=== PATIENT | female | born 1940 | race Caucasian/White ===

== ENCOUNTER 2016-10-04 12:07 | Day surgery (SDC) | payer MEDICARE, OTHER ==
[~2016-10-04] VITALS: Ht 165.1 cm; Wt 86.4 kg
[~2016-10-04 12:07] MED LIST: CALC-952 PO; CHOL200025 PO; DOXY25TA44 PO; FISH1CAP15 PO; MULT1CAP33 PO; NPR500T PO; Sodium Chloride LOK Flush 10 mL Syringe IV PRN; fentaNYL-PF 50 mCg/mL 2 mL Inj IVPUSH PRN
[2016-10-04 13:09] VITALS: BP 132/77; PULSE 99; RESP 16; O2SAT 97
[2016-10-04] MEDS: 0.9% Sodium Chloride 1,000 ML IV SCH ×3 (14:02→14:38)
[2016-10-04 14:42] VITALS: BP 119/67; PULSE 69; RESP 16; O2SAT 94
[2016-10-04 14:52] VITALS: BP 114/61; PULSE 77; RESP 14; O2SAT 97
[2016-10-04 15:02] VITALS: BP 118/58; PULSE 73; RESP 16; O2SAT 97
--- NOTE | 2016-10-04 15:10 | ENDO ---
[address] [address] ENDOSCOPY PROCEDURE PATIENT: SAL HAY : 1940 MR#: [id number] ADMIT: 10/04/2016 JOB ID: [id number] DATE: 10/04/2016 PROCEDURE: Colonoscopy. INDICATION: Family history of colon cancer. The patient's ASA classification is 2. Mallampati score is 2. MEDICATIONS: please see nurse's notes for details regarding sedation INSTRUMENT USED: PCF H 190 DL. PREPARATION QUALITY: Fair. PROCEDURE DETAILS: After informed consent was obtained, the patient was brought into the GI suite, where she was placed on oxygen via nasal cannula and monitored with continuous pulse oximeter, telemetry and blood pressure monitoring. A time-out was performed. Then, she was placed in the left lateral decubitus position and medications were administered for sedation. Digital rectal examination was performed and was unremarkable. The colonoscope was then inserted into the rectum and advanced under direct visualization to the cecum, which was identified by the presence of the ileocecal valve and appendiceal orifice. Once the cecum was reached, the colonoscope was withdrawn back to the rectum as the mucosa and lumen were examined. In the rectum, retroflexion was performed. Following retroflexion, remaining air in the rectum was suctioned, and the procedure was completed. FINDINGS: 1. A diminutive polyp was seen in the sigmoid colon which was removed with cold biopsy forceps. 2. Scattered diverticula were seen throughout the sigmoid colon. IMPRESSION: 1. Sigmoid polyp. 2. Sigmoid diverticulosis. RECOMMENDATIONS: 1. Fiber rich diet. 2. Repeat colonoscopy in five years. COMPLICATIONS: None. ESTIMATED BLOOD LOSS: Less than 5 mL. MTDD
--- NOTE | 2016-10-09 13:30 | PATH ---
SURGICAL PATHOLOGY Attending Physician:Jacoby Arboleda CASE STATUS: Signed Out PATIENT NAME: SAL HAY PID: [id number] : 1940 DATE COLLECTED:10/04/2016 00:00 SPECIMEN: Colon, Biopsy CLINICAL HISTORY: 1). SIGMOID COLON POLYP FINAL DIAGNOSIS: 1.SIGMOID COLON POLYP: POLYPOID-SHAPED FRAGMENT OF COLON MUCOSA CONSISTENT WITH MUCOSAL POLYPOID REDUNDANCY. ICD10 CODE K63.5 GROSS DESCRIPTION: The specimen is received in one formalin filled container labeled with the patient's name, sublabeled "sigmoid polyp" and consists of a 0.3 x 0.3 x 0.2 CM portion of tissue which is entirely submitted in one cassette. 10/05/2016 DAC MICRO DESCRIPTION: See diagnosis. ICD-9 CODES: CPT CODES: 1: 19058 Electronically Signed Out Tenzin Medellin MD [facility] [address], [place] [address] Technical component performed at [facility], [facility] [address], [address]
== END 2016-10-04 23:59 | disposition home or self-care (01) ==
LOC: END 12:07
PROVIDERS: ATTEND Internal Medicine Gastroenterology
DX: Z12.11 Encounter for screening for malignant neoplasm of colon (principal); Z86.010 Personal history of colon polyps; Z80.0 Family history of malignant neoplasm of digestive organs; K63.5 Polyp of colon; K57.30 Diverticulosis of large intestine without perforation or abscess without bleeding; E78.5 Hyperlipidemia, unspecified; Z87.440 Personal history of urinary (tract) infections
CPT/HCPCS: 45380; 88305; 99153; G0500; J2250; J3010; J7030